=== PATIENT | female | born 1960 | race Caucasian/White ===

== ENCOUNTER 2018-12-18 06:11 | Observation (INO) ==
[2018-12-18] MEDS ORDERED: *HR* FentaNYL (PF) 100 MCG/2 ML VIAL ONE (06:14)
[2018-12-18] MEDS ORDERED: Dexamethasone 4 MG/ML VIAL ONE (06:14)
[2018-12-18] MEDS ORDERED: *HR* PHENYLEPHRINE 1,000 MCG/10 ML SYRINGE IVP ONE (06:14)
[2018-12-18] MEDS ORDERED: *HR* Rocuronium Bromide 50 MG/5 ML VIAL ONE (06:14)
[2018-12-18] MEDS ORDERED: *HR* Propofol 200 MG/20 ML VIAL IVP ONE ×2 (06:14→11:53)
[2018-12-18] MEDS ORDERED: Lidocaine HCL 4 ML Topical Solution (Laryng-O-Jet Kit Sterile Pak) TP ONE (06:14)
[2018-12-18] MEDS ORDERED: Ondansetron 4 MG/2 ML VIAL ONE (06:14)
[2018-12-18] MEDS ORDERED: *HR* Succinylcholine 200 MG/10 ML VIAL IVP ONE (06:14)
[2018-12-18] MEDS ORDERED: Lidocaine -MPF 2% 2 ML VIAL ONE ×3 (06:14→12:11)
[2018-12-18] MEDS ORDERED: *HR* Midazolam HCl 2 MG/2 ML VIAL ONE (06:15)
[2018-12-18] MEDS ORDERED: CeFAZolin Syr 2,000MG/20 ML 2,000 MG/20 ML SYRINGE IVPB ONE (06:39)
[2018-12-18] MEDS ORDERED: Albuterol 2.5 MG/3 ML NEBULIZER IH PRN (06:39)
[2018-12-18] MEDS ORDERED: Ringers Solution, Lactated 1,000 ML IVC SCH (06:45)
[2018-12-18] MEDS ORDERED: Acetaminophen IV 1,000 MG/100 ML INFUS..BTL IVPB ONE (07:10)
[2018-12-18] MEDS ORDERED: *HR* Remifentanil 2 MG VIAL IVP ONE (07:22)
[2018-12-18] MEDS ORDERED: *HR* Phenylephrine 10 MG/ML VIAL ONE (07:22)
[2018-12-18] MEDS ORDERED: Lidocaine/EPI 1:100k 1% 20 ML VIAL ONE (07:33)
[2018-12-18] MEDS ORDERED: Ondansetron 4 MG/2 ML VIAL IVP ONE (07:45)
[2018-12-18] MEDS ORDERED: *HR* Meperidine 25 MG/ML SYRINGE IVP PRN (07:45)
[2018-12-18] MEDS ORDERED: *HR* HYDROmorphone (PF) 1 MG/ML SYRINGE IVP PRN (07:45)
[2018-12-18] MEDS ORDERED: *HR* OxyCODONE Immed Rel 5 MG TABLET PO PRN (07:45)
[2018-12-18] MEDS ORDERED: *HR* Promethazine 25 MG/ML VIAL IVP PRN ×2 (07:45→19:23)
[2018-12-18] MEDS ORDERED: EPHEDrine 50 MG/ML VIAL ONE (08:22)
[2018-12-18] MEDS ORDERED: *HR* Remifentanil 1 MG VIAL IVP ONE (11:06)
[2018-12-18] MEDS ORDERED: *HR* HYDROMORPHONE 2 MG/ML VIAL ONE (11:34)
[2018-12-18] MEDS ORDERED: traMADol 50 MG TABLET PO PRN (14:48)
[2018-12-18] MEDS ORDERED: Naloxone 0.4 MG/ML INJ IVP PRN (14:48)
[2018-12-18] MEDS ORDERED: *HR* OxyCODONE/APAP 5/325 TABLET PO PRN (14:48)
[2018-12-18] MEDS ORDERED: Ondansetron 4 MG/2 ML VIAL IVP PRN (14:48)
[2018-12-18] MEDS ORDERED: Acetaminophen 325 MG TABLET PO PRN (14:48)
[2018-12-18] MEDS: 0.9 % Sodium Chloride 1,000 ML IVC SCH (15:44)
[2018-12-18] MEDS ORDERED: *HR* HYDROcodone/Acet 5/325 mg TABLET PO PRN (19:24)
[2018-12-19] MEDS: 0.9 % Sodium Chloride 1,000 ML IVC SCH (01:13)
[2018-12-19] MEDS ORDERED: *HR* Metoprolol 5 MG/5 ML VIAL IVP PRN (17:23)
[2018-12-19 18:17] LABS: BUN/Creatinine Ratio 20 (6-26); Blood Urea Nitrogen 11 mg/dL (8-23); Calcium 8.8 mg/dL (8.6-10.3); Carbon Dioxide 32 mEq/L (23-29); Chloride 104 mEq/L (98-107); Glucose 105 mg/dL (70-105); Magnesium 1.7 mg/dL (1.6-2.6); Osmolality,Calculated 296 (280-300); Potassium 3.5 mEq/L (3.5-5.1); Sodium 143 mEq/L (136-145); eGFR For African Americans > 60 (> 60); eGFR For Non-African Americans > 60 (> 60)
[2018-12-19] MEDS: Cholecalciferol (D-3) 1,000 UNIT (25MCG) TABLET PO SCH (20:06)
[2018-12-20 08:58] LABS: VBG Ionized Calcium 1.02 mmol/L (1.15-1.35)
[2018-12-20] MEDS ORDERED: Ergocalciferol (VIT D2) 50,000 UNIT (1.25MG) CAP PO SCH (09:20)
[2018-12-20] MEDS: Cholecalciferol (D-3) 1,000 UNIT (25MCG) TABLET PO SCH (09:48)
[2018-12-20 12:17] VITALS: BP 153/83
[2018-12-20] MEDS ORDERED: Diltiazem CD (24hr) 120 MG CAPSULE PO SCH (14:01)
[2018-12-21] MEDS ORDERED: Diltiazem CD (24hr) 120 MG CAPSULE PO SCH (09:00)
== END 2018-12-20 18:30 | disposition home or self-care (01) ==
LOC: SUATTDRO → SAMDAY 06:11 → 3ANU 06:11
PROVIDERS: ADMIT Internal Medicine; ATTEND Internal Medicine